=== PATIENT | male | born 1950 | race Caucasian/White ===

== ENCOUNTER 2016-04-16 14:02 | Inpatient (IN) | payer MEDICARE, MEDICAID ==
[~2016-04-16] VITALS: Ht 190.5 cm; Wt 85.8 kg
[~2016-04-16 14:02] MED LIST: ACET325T51 PO; CHOL10008 PO; DOCU250C2 PO; FLUO40CA PO; FRSM80T PO; LACT10SO60 PO; NADO40TA PO; OMEP20CA11 PO; Oxygen NASAL; SPIR100T3 PO; vitamin k PO
[2016-04-16 14:19] VITALS: BP 115/67; PULSE 97; RESP 18; O2SAT 97
--- NOTE | 2016-04-16 15:13 | ED.REPORT ---
HPI-General Illness Date of Service Apr 16, 2016 ED Provider: Alexei Beltran MD 65 year old cirrhotic male was recently discharged from [facility] sent from a long term facility for hallucinations. Reportedly, hallucinations started after giving morphine and have continued since. Associated symptoms include decreased appetite, SOB when lying down, trouble sleeping. Denies vomiting, pain. Pt is known to have hepatocellular carcinoma and hepatic encephalopathy. Pt states "something weird is going on in my head" and reports auditory hallucinations. POLST form indicates DNR and limited interventions. Pt states that he has not been taking morphine since 04/07/16. Nursing Notes Stated Complaint: HALLUCINATIONS Chief Complaint: Neuro Symptoms/ Deficits Nursing Notes Reviewed: Yes Allergies: Coded Allergies: morphine (Verified Allergy, Severe, Hallucinations, 04/12/16) oxycodone (Verified Adverse Reaction, Severe, hallucinate, 03/30/16) acetaminophen (Verified Adverse Reaction, Intermediate, use limited due to hx liver failure, 03/25/16) aspirin (Verified Adverse Reaction, Unknown, tears up his stomach, ) ibuprofen (Verified Adverse Reaction, Unknown, tears up his stomach, 03/25) Scheduled Cholecalciferol (Vitamin D3) (Vitamin D3) 1,000 Unit Tab.chew 1,000 UNIT PO DAILY Fluoxetine (Fluoxetine) 40 Mg Capsule 60 MG PO DAILY Furosemide (Furosemide) 80 Mg Tab 80 MG PO DAILY Lactulose (Lactulose) 20 Gm/30 Ml Solution 20 GM PO TID Nadolol (Nadolol) 40 Mg Tablet 40 MG PO HS Omeprazole (Omeprazole) 20 Mg Capsule.dr 20 MG PO BID Spironolactone (Spironolactone) 100 Mg Tablet 200 MG PO DAILY Scheduled PRN ([Oxygen]) 1-2 L NASAL PRN For Shortness of Breath Acetaminophen (Acetaminophen) 325 Mg Tablet 650 MG PO Q4H PRN PRN For Pain Docusate Sodium (Docusate Sodium) 250 Mg Capsule 250 MG PO BID PRN PRN For Constipation Miscellaneous Medications ([vitamin k]) Unknown Dose PO General Time Seen by MD: 15:10 Transferred From: [facility] Chief Complaint Other (Hallucinations) Hx Obtained From: Patient, Supervisor [employer] Arrived By: Ambulance Sudden in Onset?: Yes Onset Occurred: 1 week ago Symptom Duration: Since onset Severity: Current: No pain currently Severity: Maximum: No pain Recent Healthcare: Recent doctor visit, Recent hospitalization Similar Sx Previous: No Past Medical History Past Medical History Notes: GI: Dr. Nievesjugurasamy PCP: Dr. Pastor Past Medical History pneumothorax from paracentesis multifocal hepatocellular carcinoma Cirrhosis, h/o esophageal varices and portal hypertension abdominal ascities Chronic back pain History of heart murmur History of alcohol abuse Suicidal ideation Reports: GERD, Hypertension Reports: Depression, GI bleed Past Surgical History hernia repair x3 Vasectomy paracentesis 2x Reports: Tonsillectomy Family History Mom in 70's: of coronary artery disease. Dad in 80's: Myocardial infaraction. Smoking History Former Smoker Social History Lives at [facility] Alcohol Use: In recovery Drug Use: Denies drug use Other Social History: Good social support, Local resident Occupation Unemployed Ambulatory Status Independent Review of Systems Full Review of Systems Respiratory: Reports: Shortness of breath GI: Denies: Vomiting Psychiatric: Reports: Hallucinations, auditory, Insomnia Complete sys rev & neg: except as marked. Physical Exam Vital Signs Vital Signs Date Time Temp Pulse Resp B/P Pulse Ox O2 Delivery O2 Flow Rate FiO2 04/16/16 19:45 102 16 118/66 92 Room Air 04/16/16 14:19 36.0 97 18 115/67 97 Room Air Initial VS: Reviewed General/Constitutional: Well-developed, Well-nourished Head / Eyes: Atraumatic, Normocephalic, PERRL ENT: Mucous membranes moist, Conjunctiva normal, No scleral icterus Neck: Supple, Non-tender, Full range of motion Extremities: Vascular intact, Neuro intact, No swelling, No tenderness Neurologic: Alert, Oriented, Nonfocal Respiratory / Chest: Breath sounds NL, No respiratory distress, No rales, No rhonchi, No wheezing Cardiovascular: Heart rate NL, Regular rhythm, No gallop, No rubs Heart Sounds / Murmur: Positive: Systolic murmur present.. (III/, upper sternal border) Abdomen: BS normoactive Bowel Sounds / Distention: Positive: Distention moderate Skin: Warm, Dry, Intact Color / Condition: Positive: Jaundice present Interpretation & Diagnostics Lab Results Interpretation Result Diagram: 04/16/16 1510 04/16/16 1510 Test 04/16/16 15:05 04/16/16 15:10 04/16/16 20:40 Urine Color Dark yellow (YELLOW) Urine Appearance Clear (CLEAR,HAZY) Urine pH 5.0 (5.0-8.0) Urine Specific [place] 1.015 (1.003-1.035) Urine Protein Negativemg/dL (NEG,TRACE) Urine Glucose (UA) 100mg/dL (NEGATIVE) Urine Ketones Negativemg/dL (NEGATIVE) Urine Occult Blood Negative (NEGATIVE) Urine Nitrite Negative (NEGATIVE) Urine Bilirubin Large (NEGATIVE) Urine Ictotest Positive (Negative) Urine Urobilinogen Normalmg/dL (NORMAL) Urine Leukocyte Esterase Negative (NEGATIVE) Urine RBC 0-2/hpf (0-2) Urine WBC 0-5/hpf (0-5) Urine Epithelial Cells None/hpf (NONE-MOD) Urine Crystals None seen (NONE SEEN) Urine Bacteria Few/hpf (NONE-FEW) Urine Hyaline Casts None/lpf (NONE) Urine Granular Casts None seen (NONE SEEN) Urine Waxy Casts None seen (NONE SEEN) Urine Red Blood Cell Casts None seen (NONE SEEN) Urine White Blood Cell Casts None seen (NONE SEEN) Urine Mucus None seen (None Seen) Urine Trichomonas None seen (NONE SEEN) Urine Yeast None (NONE SEEN) Urinalysis Comment Amorphous sediment Urine Culture Reflexed Not indicated White Blood Count 12.2th/mm3 (3.8-10.1) Red Blood Count 2.14mil/mm3 (4.40-5.80) Hemoglobin 8.0g/dL (13.8-17.2) Hematocrit 22.5% (41.0-50.0) Mean Corpuscular Volume 105.1fL (81-100) Mean Corpuscular Hemoglobin 37.4pg (27.0-35.0) Mean Corpuscular Hemoglobin Concent 35.6% (32.0-37.0) Red Cell Distribution Width 17.6% (12.3-15.4) Platelet Count 209bil/L (150-400) Neutrophils (%) (Auto) 77% (40-74) Lymphocytes (%) (Auto) 2% (14-46) Monocytes (%) (Auto) 9% (4-12) Eosinophils (%) (Auto) 2% (0-5) Basophils (%) (Auto) 0% (0-3) Band Neutrophils % 1% (1-5) Metamyelocytes % 4% (0-0) Myelocytes % 5% (0-0) Nucleated Red Blood Cells 1/100 WBC (0-24) Prothrombin Time 16.6sec (8.1-12.5) Prothromb Time International Ratio 1.54ratio Activated Partial Thromboplast Time 44.1sec (22.8-33.0) Sodium Level 123mEq/L (134-144) Potassium Level 4.0mEq/L (3.5-5.2) Chloride Level 88mEq/L (97-108) Carbon Dioxide Level 21mmol/L (18-29) Blood Urea Nitrogen 25mg/dL (8-27) Creatinine 0.30mg/dL (0.76-1.27) Estimat Glomerular Filtration Rate 322mL/min (>59) Glucose Level 125mg/dL (60-99) Calcium Level 8.6mg/dL (8.5-10.1) Total Bilirubin 36.5mg/dL (0.0-1.2) Aspartate Amino Transf (AST/SGOT) 60U/L (0-50) Alanine Aminotransferase (ALT/SGPT) 20U/L (0-44) Alkaline Phosphatase 80U/L (25-160) Ammonia 17ug/dL (18-53) Total Protein 6.2g/dL (6.4-8.4) Albumin 3.2g/dL (3.4-5.0) Hold [place] Top Tube Received (Received) Hold [place] Top Tube Received (Received) Re-Eval/Medical Decision Med Decision/Clinical Course 65 year old cirrhotic with auditory hallucinations, mainly at night. Alert and oriented, does not appear encephalopathic or to be acutely infected. On review of med list I did not see any sedating meds, onset of these hallucinations is realated to morphine given previously at [facility]. Also of note, elevated WBC and low sodium. Bili is climbing. Abd is not tender. His GI specialist advises blood cultrue, admit for observation and possibly diagnostic paracentesis. Blood cx done. Abd NT. Time of Eval: 19:45 Patient Status: Condition improved Re-Evaluation/Progress Note: Discussed consultation with Dr. Wheeler and plan for admission. Pt understands and agrees with plan. Consultation #1: Referral / Consult Name: Hayley Grimm MD Call Returned at: 19:14 Note: GI. Observe the pt overnight. Send a blood culture and hold sedation. Consider diagnostic paracentesis. Consultation #2: Referral / Consult Name: Yasmin Erazo MD Consulted With: Hospitalist Call Returned at: 20:02 Mycologist: Will see patient, Agrees with plan, Accepts admit Counseled Regarding: Diagnosis, Lab results, Need for follow-up, When/why to return to ED Discharge & Departure Primary Impression: Confusion Additional Impression: Hyponatremia Disposition: ADMITTED TO HOSPITAL Discharge Condition All VS Reviewed: Yes Condition: Improved Referrals: Howard Pastor MD (PCP) Hayley Grimm MD Attestation Portions of this note were transcribed by Anabell Dietz. I, Dr. Beltran personally performed the history, physical exam and medical decision-making; I reviewed and confirmed the accuracy of the information in the transcribed note. Signed by : Sofia Flores, 04/16/16 and 2002. copies to: Hayley Grimm MD; Howard Pastor MD, Donald L MD Apr 16, 2016 15:13 ANABELL DIETZ Apr 16, 2016 19:00
[2016-04-16 15:17] LABS: Mean Corpuscular Hemoglobin 37.4 pg (27.0-35.0); Mean Corpuscular Volume 105.1 fL (81-100); Platelet Count 209 bil/L (150-400)
[2016-04-16 15:57] LABS: APPEARANCE,URINE CLEAR (CLEAR,HAZY); COLOR,URINE DARK YELLOW (YELLOW)
[2016-04-16 16:01] LABS: OCCULT BLOOD,URINE NEGATIVE (NEGATIVE); UROBILINOGEN,URINE NORMAL (NORMAL)
[2016-04-16 16:02] LABS: ICTOTEST,URINE POSITIVE (Negative)
[2016-04-16 18:25] LABS: BASOPHILS % (AUTO) 0 % (0-3); EOSINOPHILS % (AUTO) 2 % (0-5); MONOCYTES % (AUTO) 9 % (4-12); NEUTROPHILS % (AUTO) 77 % (40-74)
[2016-04-16 19:45] VITALS: BP 118/66; PULSE 102; RESP 16; O2SAT 92
[2016-04-16] MEDS ORDERED: Ondansetron 2 mg/mL 2 mL Inj IVPUSH PRN (21:00)
[2016-04-16] MEDS ORDERED: Polyethylene Glycol (PEG) 17 Gm Powder PO PRN (21:00)
[2016-04-16] MEDS ORDERED: Alum-Mag Hydrox-Simeth 30 mL Suspension PO PRN (21:00)
[2016-04-16 21:36] LABS: INR 1.54 ratio
--- NOTE | 2016-04-16 21:40 | PCM.HPMED ---
Subjective Date of Service Apr 16, 2016 Primary Provider: Admitting Physician: Primary Care Physician: Howard Pastor MD Attending Physician: Admit Status: From the Emergency Department, 23-Hour Observation, Non-Telemetry Chief Complaint: Increased confusion at [facility] History of Present Illness: This 65-year-old male who has a history of end-stage liver disease along with hepatocellular carcinoma over the past several days apparently has been having some increasing problems with confusion problems with insomnia decreased appetite denies any nausea or vomiting. Denies any abdominal pain. Denies any fevers or chills. His evaluation here in the emergency room actually includes a normal ammonia level of 17 total bili is 36.5 AST is 60 ALT is 20 alkaline phosphatase is 80. His white count is 12.2 with 209,000 platelets his sodium is low but lower than usual at 123. He was recently hospitalized here March 29 with hypotension. Did respond to IV fluids. He also does have a history of recurrent ascites. No recent cough or urinary symptoms. Review of Systems: All other review of systems are reviewed and are negative except for as in history of present illness. Patient does seem to think that he notes since he got some morphine recently about a week ago he notes that he has been having increasing troubles. He only had the one time dose by his report. Allergies Coded Allergies: morphine (Verified Allergy, Severe, Hallucinations, 04/12/16) oxycodone (Verified Adverse Reaction, Severe, hallucinate, 03/30/16) acetaminophen (Verified Adverse Reaction, Intermediate, use limited due to hx liver failure, 03/25/16) aspirin (Verified Adverse Reaction, Unknown, tears up his stomach, ) ibuprofen (Verified Adverse Reaction, Unknown, tears up his stomach, 03/25) Home Medications Scheduled Cholecalciferol (Vitamin D3) (Vitamin D3) 1,000 Unit Tab.chew 1,000 UNIT PO DAILY Fluoxetine (Fluoxetine) 40 Mg Capsule 60 MG PO DAILY Furosemide (Furosemide) 80 Mg Tab 80 MG PO DAILY Lactulose (Lactulose) 20 Gm/30 Ml Solution 20 GM PO TID Nadolol (Nadolol) 40 Mg Tablet 40 MG PO HS Omeprazole (Omeprazole) 20 Mg Capsule.dr 20 MG PO BID Spironolactone (Spironolactone) 100 Mg Tablet 200 MG PO DAILY Scheduled PRN ([Oxygen]) 1-2 L NASAL PRN For Shortness of Breath Acetaminophen (Acetaminophen) 325 Mg Tablet 650 MG PO Q4H PRN PRN For Pain Docusate Sodium (Docusate Sodium) 250 Mg Capsule 250 MG PO BID PRN PRN For Constipation PMH Past Medical History Notes: GI: Dr. Doherty PCP: Dr. Pastor Past Medical History pneumothorax from paracentesis multifocal hepatocellular carcinoma Cirrhosis, h/o esophageal varices and portal hypertension abdominal ascities Chronic back pain History of heart murmur History of alcohol abuse Suicidal ideation Reports: GERD, Hypertension Reports: Depression, GI bleed Past Surgical History hernia repair x3 Vasectomy paracentesis 2x Reports: Tonsillectomy Family History Mom in 70's: of coronary artery disease. Dad in 80's: Myocardial infaraction. Social History Hx Alcohol Use: Yes (stop 9 months ago) Hx Substance Use: No Hx Tobacco Use: No Smoking Status: Former Smoker Living Arrangement: [facility] Facility Exam Vital Signs Vital Sign - Last Date Time Temp Pulse Resp B/P Pulse Ox O2 Delivery O2 Flow Rate FiO2 04/16/16 19:45 102 16 118/66 92 Room Air 04/16/16 14:19 36.0 Exam Constitutional: Very jaundiced male with significant ascites who actually appears in no acute distress Head: Normocephalic atraumatic Eyes: Icteric, PERRLA DC EOMI Mouth: No lesions Neck: No adenopathy Chest: Decreased breath sounds at the bases Cor: Regular rate and rhythm S1-S2 with 3/6 systolic ejection murmur Abdomen: Distended from ascites no palpable tenderness noted Extremities: 1+ lower extremity edema Skin no rashes Psych: Mood and affect are appropriate Neuro: Alert and oriented 3, motor strength is intact bilaterally, no asterixis on exam Lab and Diagnostics Labs Laboratory Tests 72 Hours Test 04/16/16 15:05 04/16/16 15:10 04/16/16 20:40 04/16/16 20:56 Urine Color Dark yellow (YELLOW) Urine Appearance Clear (CLEAR,HAZY) Urine pH 5.0 (5.0-8.0) Urine Specific [place] 1.015 (1.003-1.035) Urine Protein Negativemg/dL (NEG,TRACE) Urine Glucose (UA) 100mg/dL (NEGATIVE) Urine Ketones Negativemg/dL (NEGATIVE) Urine Occult Blood Negative (NEGATIVE) Urine Nitrite Negative (NEGATIVE) Urine Bilirubin Large (NEGATIVE) Urine Ictotest Positive (Negative) Urine Urobilinogen Normalmg/dL (NORMAL) Urine Leukocyte Esterase Negative (NEGATIVE) Urine RBC 0-2/hpf (0-2) Urine WBC 0-5/hpf (0-5) Urine Epithelial Cells None/hpf (NONE-MOD) Urine Crystals None seen (NONE SEEN) Urine Bacteria Few/hpf (NONE-FEW) Urine Hyaline Casts None/lpf (NONE) Urine Granular Casts None seen (NONE SEEN) Urine Waxy Casts None seen (NONE SEEN) Urine Red Blood Cell Casts None seen (NONE SEEN) Urine White Blood Cell Casts None seen (NONE SEEN) Urine Mucus None seen (None Seen) Urine Trichomonas None seen (NONE SEEN) Urine Yeast None (NONE SEEN) Urinalysis Comment Amorphous sediment Urine Culture Reflexed Not indicated White Blood Count 12.2th/mm3 (3.8-10.1) Red Blood Count 2.14mil/mm3 (4.40-5.80) Hemoglobin 8.0g/dL (13.8-17.2) Hematocrit 22.5% (41.0-50.0) Mean Corpuscular Volume 105.1fL (81-100) Mean Corpuscular Hemoglobin 37.4pg (27.0-35.0) Mean Corpuscular Hemoglobin Concent 35.6% (32.0-37.0) Red Cell Distribution Width 17.6% (12.3-15.4) Platelet Count 209bil/L (150-400) Neutrophils (%) (Auto) 77% (40-74) Lymphocytes (%) (Auto) 2% (14-46) Monocytes (%) (Auto) 9% (4-12) Eosinophils (%) (Auto) 2% (0-5) Basophils (%) (Auto) 0% (0-3) Band Neutrophils % 1% (1-5) Metamyelocytes % 4% (0-0) Myelocytes % 5% (0-0) Nucleated Red Blood Cells 1/100 WBC (0-24) Activated Partial Thromboplast Time 44.1sec (22.8-33.0) Sodium Level 123mEq/L (134-144) Potassium Level 4.0mEq/L (3.5-5.2) Chloride Level 88mEq/L (97-108) Carbon Dioxide Level 21mmol/L (18-29) Blood Urea Nitrogen 25mg/dL (8-27) Creatinine 0.30mg/dL (0.76-1.27) Estimat Glomerular Filtration Rate 322mL/min (>59) Glucose Level 125mg/dL (60-99) Calcium Level 8.6mg/dL (8.5-10.1) Total Bilirubin 36.5mg/dL (0.0-1.2) Aspartate Amino Transf (AST/SGOT) 60U/L (0-50) Alanine Aminotransferase (ALT/SGPT) 20U/L (0-44) Alkaline Phosphatase 80U/L (25-160) Ammonia 17ug/dL (18-53) Total Protein 6.2g/dL (6.4-8.4) Albumin 3.2g/dL (3.4-5.0) Hold [place] Top Tube Received (Received) Received (Received) Hold [place] Top Tube Received (Received) Result Diagram: 04/16/16 1510 04/16/16 1510 Assessment & Plan # Reported increased confusion, subacute, present on admission Patient actually is quite alert and oriented and has no deficits and cognitive thinking noted by my interview. We will monitor. Ammonia level was normal. # Recurrent ascites, chronic, present on admission We will go ahead and schedule ultrasound-guided therapeutic/diagnostic paracentesis for tomorrow. # Hyponatremia, subacute on chronic, present on admission We will go ahead and fluid restrict to 1.5 L and recheck in a.m. # Chronic hepatic cirrhosis with hepatocellular carcinoma, chronic, present on admission His GI specialist has been notified by CHAZ Hodge regarding this patient and will see in a.m. with further recommendations. # DVT prophylaxis SCDs # CODE STATUS DNR/DNI Pain Evaluation: Adequate Pain Control GI Prophylaxis: Proton Pump Inhibitor VTE Prophylaxis: SCDs Resuscitation Status: DNR/DNI:Do Not Resuscitate/Intubate Time spent 60 minutes Yasmin Erazo MD Apr 16, 2016 21:40
[2016-04-16 23:57] VITALS: BP 113/70; PULSE 94; RESP 20; O2SAT 94
[2016-04-17] VITALS (15 sets, daily range): BP systolic 93–125; BP diastolic 42–76; PULSE 71–101; RESP 16–24; O2SAT 94–99
[2016-04-17 02:10] LABS: Mean Corpuscular Hemoglobin 37.4 pg (27.0-35.0); Mean Corpuscular Volume 104.7 fL (81-100); Platelet Count 214 bil/L (150-400)
[2016-04-17 02:35] LABS: BASOPHILS % (AUTO) 0 % (0-3); EOSINOPHILS % (AUTO) 3 % (0-5); MONOCYTES % (AUTO) 8 % (4-12); NEUTROPHILS % (AUTO) 70 % (40-74)
--- NOTE | 2016-04-17 05:35 | NUR ---
Restlessness Pt unable to sleep during overnight associate. Pt cooperative with care, up in the chair watching TV. No c/o pain or discomfort. Frequent care checks.
[2016-04-17] MEDS: Pantoprazole 40 mg ER24 Tablet PO SCH (06:30)
--- NOTE | 2016-04-17 07:52 | DRSVH ---
PROCEDURE: X-RAY CHEST ONE VIEW, PORTABLE ([id number]) INDICATIONS: confusion,ascites TECHNIQUE: One view of the chest was acquired. COMPARISON: [facility], CR, XR CHEST 1VW (PORTABLE), 03/29/2016, 17:27. FINDINGS: Surgical changes and devices: None. Lungs and pleura: Right-sided pleural fluid collection has resolved. Moderate-sized left-sided pleura l fluid collection is noted. Patchy airspace opacities noted in the right lung suspicious for residua l pneumonia. Consolidation noted in the left lung base compatible with compressive atelectasis versus pneumonia. Mediastinum: Mediastinal contours appear normal. Heart size is normal. Bones and chest wall: No suspicious bony lesions. Overlying soft tissues appear unremarkable. Dilat ed loop of bowel noted in the right upper quadrant of the abdomen. IMPRESSION: 1. Moderate sized left-sided pleural effusion. 2. Left basilar consolidation compatible with atelectasis versus pneumonia. 3. Patchy airspace opacities in the right lung suspicious for pneumonia. 4. Dilated loop of bowel in the visualized abdomen. Small bowel obstruction cannot be excluded. Recom mend correlation with clinical data. Dictated by: Ambika Walsh MD, PhD on 04/17/2016 at 7:49 Approved by: Ambika Walsh MD, PhD on 04/17/2016 at 7:49
[2016-04-17] MEDS: Lactulose 20 Gm/30 mL 30 mL Syrup PO SCH ×2 (08:28→17:24)
[2016-04-17] MEDS ORDERED: CIPR-198 PO (11:31)
[2016-04-17] MEDS ORDERED: RIFA550T3 PO (11:41)
[2016-04-17] MEDS ORDERED: L. A1CAP11 PO (11:41)
[2016-04-17] MEDS ORDERED: [UNRECOGNIZED DRUG - OTHER] (11:47)
[2016-04-17] MEDS ORDERED: MAGN400O4 PO (11:51)
--- NOTE | 2016-04-17 11:54 | NUR ---
Med Rec: Medication reconciliation completed per medication list from Celina Arriola.
[2016-04-17] MEDS ORDERED: Sodium Chloride LOK Flush 10 mL Syringe IVFLUSH PRN ×2 (12:00)
[2016-04-17] MEDS ORDERED: Alteplase (Cathflo) 1 mg/mL 2 mL Inj IVPUSH ONE ×3 (12:00)
--- NOTE | 2016-04-17 12:59 | NUR ---
Palliative Care Palliative Care received order from Natalie Park DO 04/17/16 to assist with goals of care. Patient is a 65 year old man with history of end stage liver disease and hepatocellular carcinoma. His most recent hospitalization was 03/29 -04/02 for hypotension. He was admitted 04/17/16 from his SNF due to increased confusion. Mary Mi (daughter) [phone], Daysi Lio (sister) [phone] Palliative Care to follow. Dahlia Singh
--- NOTE | 2016-04-17 13:35 | NUR ---
paracentesis patient transferred off floor for paracentesis at 1315hrs
--- NOTE | 2016-04-17 14:03 | PCM.CHPMED ---
Subjective Date of Service: Apr 17, 2016 Provider requesting consult: Yasmin Erazo MD Primary Physician: Admitting Physician: Yasmin Erazo MD Primary Care Physician: Howard Pastor MD Attending Physician: Yasmin Erazo MD Chief Complaint: Chief Complaint: Increasing confusion History of Present Illness: Patient is a 65-year-old male who has a history of end-stage liver disease along with hepatocellular carcinoma, ascites, esophageal varices, portal hypertension, GERD, and alcohol abuse, who presents with increasing confusion over the past several days. He has difficulty describing his confusion and appears to be alert and oriented, but it appears to be more concentration and memory difficulties. He also reports recent visual and auditory hallucinations over the last few days, but states that he has been having auditory hallucinations all his life, and states that he "talks to God" on occasion. He states his recent symptoms started immediately after receiving morphine 10 days ago in [facility]. He also attributes his recent confusion to significant insomnia over the last week due to discomfort in any position while sleeping. He reports lower extremity edema, weakness and poor balance. He denies abdominal pain, fevers, chills, N/V/D, hematochezia, chest pain, SOB, wheezing. In the ED, ammonia was normal at 17, total bili is 36.5, AST is 60, ALT is 20, alkaline phosphatase is 80. His white count is 12.2 with platelets 209. He was afebrile but BP was 94/57. Chest x-ray showed moderate left pleural effusion, left basilar consolidation compatible with atelectasis versus pneumonia, patchy airspace opacities in the right lung suspicious for pneumonia, and dilated loop of bowel in the visualized abdomen, suspicious for a small bowel obstruction. Of note, the [facility] Liver Transplant Selection Committee sent a letter received on 04/05/16 informing the patient and [facility] that the patient is not a candidate for liver transplant because of the following reasons: - Lack of insignt into alcohol used and its effects on liver disease - Inability to maintain sobriety after multiple attempts at chemical dependency treatment. Review of Systems: Comprehensive review of systems conducted and was negative except for the pertinent positives listed above. PMH Bedside Blood Glucose: 105 Allergies: Coded Allergies: morphine (Verified Allergy, Severe, Hallucinations, 04/12/16) oxycodone (Verified Adverse Reaction, Severe, hallucinate, 03/30/16) acetaminophen (Verified Adverse Reaction, Intermediate, use limited due to hx liver failure, 03/25/16) aspirin (Verified Adverse Reaction, Unknown, tears up his stomach, ) ibuprofen (Verified Adverse Reaction, Unknown, tears up his stomach, 03/25) Social History Hx Alcohol Use: Yes (stop 9 months ago)Hx Substance Use: NoHx Tobacco Use: No Smoking Status: Former Smoker [facility] Exam Vital Signs Vital Sign - Last Date Time Temp Pulse Resp B/P Pulse Ox O2 Delivery O2 Flow Rate FiO2 04/17/16 08:12 Supplement Oxygen 04/17/16 05:56 36.6 94 18 94/57 95 2.00 Intake and Output 04/16/16 04/16/16 04/17/16 Cumulative From/Thru 15:00 23:00 07:00 04/16/16 14:19 - 04/17/16 06:54 Intake Total 760 ml 760 ml Output Total 650 ml 650 ml Balance 110 ml 110 ml Intake Oral 760 ml 760 ml Output Urine Total 650 ml 650 ml # Voids 1 1 Additional Information: General: Alert, Oriented X3, Cooperative, No Acute Distress Head: Normocephalic, atraumatic. External ears normal. Eyes: PERRLA, EOMI. Significant scleral icterus Mouth: Mouth Normal, Mucous Membranes Moist/[place] Neck: Neck supple with full range of motion. Chest & Lungs: Clear to auscultation bilaterally with no crackles, wheezes, or rhonchi. Cardiovascular: Regular Rate/Rhythm, Normal S1, Normal S2, No Murmurs/Rubs/ Gallops Abdomen: Non-tender, Abdomen severely distended with ascites, No masses, Hypoactive bowel tones, Soft Extremities: Bilateral lower extremity edema Neurological: Normal Speech, Tremor present in hands, Cranial Nerves 2-12 Intact Skin: Jaundice present. Telangiectasia on face. Distended Lab and Diagnostics Result Diagram: 04/17/1614604/17/16146 Assessment & Plan Assessment Patient is a 65-year-old male who has a history of end-stage liver disease along with hepatocellular carcinoma, ascites, esophageal varices, portal hypertension, GERD, and alcohol abuse, who presents with increasing confusion over the past several days 1. Leukocytosis, acute. - Pt presents with WBC of 12.2 with 77% neutrophils. His WBC is significantly elevated given his baseline WBC of 3-4. Pancytopenia is expected in pts with ESLD and even minor elevations in WBC should be investigated. Given his CXR findings and ascites, consider causes of infection such as pneumonia, small bowel obstruction, and spontaneous bacterial peritonitis. - Recommend paracentesis with cultures and cytology - Consider further abdominal imaging. 2. Ascites - Pt presents with large amount of ascites. Given leukocytosis, recommend paracentesis with fluid analysis including cultures and cytology. 3. Acute confusion, stable. - Ammonia level was normal, but this is not a reliable test to follow for hepatic encephalopathy. Likely not related to hepatic encephalopathy, but may be due to loss of sleep, baseline psychiatric issues and possible infection. Recommend investigating/treating underlying cause of infection. 4. End-stage liver disease, chronic. - MELD Score 31, which confers a 19.6% 3 month mortality. Problems: Pain Evaluation: Adequate Pain Control GI Prophylaxis: Proton Pump Inhibitor VTE Prophylaxis: SCDs Resuscitation Status: DNR/DNI:Do Not Resuscitate/Intubate Attending Statement Patient seen and examined Agree with the resident physician noted above Plan as outlined in his note Jonel Matt Apr 17, 2016 13:37 Hayley Grimm MD May 06, 2016 14:45
--- NOTE | 2016-04-17 14:38 | PCM.PNMED ---
Subjective Date of Service Apr 17, 2016 Subjective Ramana reports that he was sent from [facility] to the hospital because of insomnia, he has not slept well for 2 weeks, and staff at [facility] were worried about his hallucinations. Ramana states that he has had auditory hallucinations "for most of my life" in which he hears what he thinks is the voice of god talking to him. He has started to have some visual hallucinations as well which he states are rather pleasant. Ramana states that he understands that he is dying and would like have a palliative care discussion. Exam Vital Signs Vital Sign - Last Date Time Temp Pulse Resp B/P Pulse Ox O2 Delivery O2 Flow Rate FiO2 04/17/16 13:34 92 20 123/76 97 Nasal Cannula 2.00 04/17/16 13:16 36.3 Intake and Output 04/16/16 04/16/16 04/17/16 Cumulative From/Thru 15:00 23:00 07:00 04/16/16 14:19 - 04/17/16 06:54 Intake Total 760 ml 760 ml Output Total 650 ml 650 ml Balance 110 ml 110 ml Intake Oral 760 ml 760 ml Output Urine Total 650 ml 650 ml # Voids 1 1 Exam General: Chronically ill appearing male laying supine in bed, resting with the head of the bed elevated. HEENT: Sclera icteric. Tongue with jaundice. Mucus membranes are moist Cardiac: RRR, no rub or gallop Respiratory: Moderate inspiratory effort, no wheezes, rales, or rhonchi Abdomen: Umbilical hernia present. + moderate ascites with fluid wave. Hepatomegaly present to 4cm inferior to the costal margin with scratch test. Subtle caput medusae present. Skin: Jaundice throughout including the palms of the hands. Skin is dry with normal turgor. There are many small ecchymoses of varying ages present on the bilateral upper extremities. Telangiectasias present on the face. Neuro: Awake, alert, and oriented. Able to sit up in bed unassisted. Moves all 4 extremities with ease. Normal speech. Psych: Normal affect. No current hallucinations. No paranoia or obsessive thoughts. IVs and Medications Medications Reviewed: Medications were reviewed in detail Lab and Diagnostics Result Diagram: 04/17/16 0147 04/17/16146 X-Rays, CTs and MRIs CXR 04/16/16: IMPRESSION: 1. Moderate sized left-sided pleural effusion. 2. Left basilar consolidation compatible with atelectasis versus pneumonia. 3. Patchy airspace opacities in the right lung suspicious for pneumonia. 4. Dilated loop of bowel in the visualized abdomen. Small bowel obstruction cannot be excluded. Recommend correlation with clinical data. Dictated by: Ambika Walsh MD, PhD on 04/17/2016 at 7:49 Assessment & Plan Ramana is an unfortunate 65yo male with longstanding alcohol use in remission for 9months who has end stage liver disease along with multifocal hepatocellular carcinoma for which he had ablation at [facility]. He was admitted after staff at [facility] found that he has been hallucinating. He has been alert and oriented since admission. 1. End stage liver disease, chronic and worsening - Secondary to alcoholic cirrhosis - MELD score of 31 indicating a 19.6% chance of within the next 3 months - Not a candidate for transplant after discussion at [facility] - Gastroenterology has been consulted during this hospitalization - Requesting a palliative consultation as the patient would like to have a goals of care discussion and verbally expressed an interest in transitioning to hospice care 2. Recurrent ascites, chronic, present on admission - Has been getting therapeutic paracentesis every 2 weeks - Ultrasound-guided therapeutic paracentesis today 3. Hyponatremia, subacute on chronic, present on admission -Secondary to #1 above -Continue fluid restriction to 1.5 L per day to avoid worsening 4. Hallucinations, probably chronic - Does not have an altered mental status from his baseline per the patient's daughter, Mary, who was bedside this morning. - Consider that the patient may have an underlying psychiatric illness that he was self medicating with ETOH - He verbally expressed that he is not bothered by the hallucinations which have been life long - Will defer treatment at this time 5. Multi focal hepatocellular carcinoma - s/p ablative therapy GI Prophylaxis: Proton Pump Inhibitor VTE Prophylaxis: SCDs Resuscitation Status: DNR/DNI:Do Not Resuscitate/Intubate (Discussed at bedside with the patient) Attending Statement The patient was seen and examined together with Dr. Park on 04/17/2016 and I agree with the history, exam and plan as outlined in the note above. Maria E Park DO Apr 17, 2016 14:38 Brent Dumont MD Apr 18, 2016 13:48
[2016-04-17] MEDS ORDERED: Albumin 25% 50 ML IV ONE (15:35)
--- NOTE | 2016-04-17 16:09 | NUR ---
Social Work: Attempted initial Assessment Data: INSPECTOR EYEGLASS FRAMES attempted initial assessment, pt was out of room for medical testing. INSPECTOR EYEGLASS FRAMES will attempt at a later time. JUANJO Villalpando
[2016-04-17] MEDS ORDERED: Albumin 25% 25 GM in IV Premix 1 EACH IV ONE (16:45)
--- NOTE | 2016-04-17 17:10 | NUR ---
Paracentesis: Pt arrived to [facility] for paracentesis at 1330, VSS on 2L NC, no c/o pain. Radiologist started procedure at 1505 with US at bedside, 6.9 L fluid drained. Picc line not flushing well and would not infuse albumin, 22g peripheral IV started in L AC and albumin infused per order. Report called to ERVIN Tompkins on MOC, pt taken in w/c off [facility] with chart and belongings at 1705.
--- NOTE | 2016-04-17 18:25 | NUR ---
AMS improved patient mental status improving today. patient able to answer questions appropriately; alert to person, place and time. he's able to make needs known. continue to monitor for any changes.
[2016-04-17] MEDS: Heparin 5,000 Unit/mL Inj SUBQ SCH (20:20)
[2016-04-17] MEDS: Phytonadione (Adult) 10 mg/1 mL Inj PO SCH (22:00)
[2016-04-18] MEDS: Lactulose 20 Gm/30 mL 30 mL Syrup PO SCH ×4 (01:02→21:25)
[2016-04-18 04:05] VITALS: BP 107/58; PULSE 69; RESP 20; O2SAT 97
--- NOTE | 2016-04-18 05:08 | NUR ---
Restlessness/Mentation Pt unable to fall sleep tonight. Denies pain. on 2L O2 with SPO2 97%. Pleasant and cooperative with care. liquid stool x3. A&O x3, but forgetful. Bed is locked and in low position. call light within reach. will continue to monitor.
[2016-04-18 06:12] LABS: Mean Corpuscular Hemoglobin 36.6 pg (27.0-35.0); Platelet Count 208 bil/L (150-400)
[2016-04-18] MEDS: Pantoprazole 40 mg ER24 Tablet PO SCH (06:42)
[2016-04-18 07:01] LABS: BASOPHILS % (AUTO) 0 % (0-3); EOSINOPHILS % (AUTO) 3 % (0-5); MONOCYTES % (AUTO) 14 % (4-12); NEUTROPHILS % (AUTO) 71 % (40-74)
--- NOTE | 2016-04-18 07:40 | NUR ---
Order Clarification Contacted Dr. Goldsmith with the following cook page: Patient has a total of 100mg Pepcid scheduled this morning, 20 mg BID and 80 mg Daily, wanted to clarify order. Please advise. Thank you. Any MELENDEZ
[2016-04-18 08:46] VITALS: BP 116/52; PULSE 68; RESP 20; O2SAT 98
--- NOTE | 2016-04-18 09:10 | DRSVH ---
PROCEDURE: US GUIDED PARACENTESIS, PRIMARY ([id number]) INDICATIONS: ascites,cirrhosis,therapeutic and diagnostic TECHNIQUE: The indications, alternatives, benefits, risks, and complications of the procedure were explained to the patient. Written informed consent was obtained and placed in the chart. The abdomen and pelvis were examined sonographically, and an appropriate site was chosen for paracentesis. The skin was pre pared and draped in the usual sterile fashion, and 1% lidocaine was infiltrated from the skin down th rough the peritoneal surface. A 19-gauge catheter-covered needle was then introduced into the perito barbara space, the catheter was advanced and the needle was withdrawn, and thereafter peritoneal fluid w as withdrawn. The catheter was then removed and a dressing was applied. The fluid was discarded if the clinician did not order diagnostic testing of the fluid. COMPARISON: None. FINDINGS: Access site: Midline lower abdomen. Needle: One-Step centesis catheter with introducer needle. Fluid volume and description: 8000 cc of clear yellow ascites. Fluid sent for diagnostic testing: Not requested Medications: 1% lidocaine for local anaesthesia. Complications: None. IMPRESSION: Successful ultrasound-guided therapeutic paracentesis. No immediate complications. Dictated by: Ambika Walsh MD, PhD on 04/18/2016 at 9:07 Approved by: Ambika Walsh MD, PhD on 04/18/2016 at 9:07
--- NOTE | 2016-04-18 09:20 | NUR ---
Pharmacy Communication Called pharmacy due to missing Vitamin K, was told the med is not due until tonight. I stated the computer does reflect the med is due at 0830, was asked to send a nursing communication to the pharmacy. Nursing communication form completed and sent to the pharmacy.
--- NOTE | 2016-04-18 09:54 | PCM.PNMED ---
Subjective Date of Service Apr 18, 2016 Subjective Patient had difficulty sleeping overnight, but otherwise uneventful. He continues to be fully awake and oriented but occasionally forgetful. This morning, he denies confusion, nausea, vomiting, abdominal pain, fever, or chills. He reports green stool, chronically loose from lactulose. He reports his coughing and shortness of breath are significantly improved after the paracentesis yesterday. He denies any further visual hallucinations, but continues to have occasional auditory hallucinations, which he reports he has always had. Exam Vital Signs Vital Sign - Last Date Time Temp Pulse Resp B/P Pulse Ox O2 Delivery O2 Flow Rate FiO2 04/18/16 08:46 36.7 68 20 116/52 98 Nasal Cannula 2.00 Intake and Output 04/17/16 04/17/16 04/18/16 Cumulative From/Thru 15:00 23:00 07:00 04/16/16 14:19 - 04/18/16 06:21 Intake Total 350 ml 800 ml 1910 ml Output Total 6900 ml 750 ml 1075 ml 9375 ml Balance -6900 ml -400 ml -275 ml -7465 ml Intake Oral 350 ml 800 ml 1910 ml Output Urine Total 750 ml 475 ml 1875 ml Stool Total 600 ml 600 ml Other 6900 ml 6900 ml # Voids 1 # Bowel Movements 0 4 4 Exam General: Alert, Oriented X3, Cooperative, No Acute Distress Head: Normocephalic, atraumatic. External ears normal. Eyes: PERRLA, EOMI. Significant scleral icterus Mouth: Mouth Normal, Mucous Membranes Moist/[place] Neck: Neck supple with full range of motion. Chest & Lungs: Clear to auscultation bilaterally with no crackles, wheezes, or rhonchi. Cardiovascular: Regular Rate/Rhythm, Normal S1, Normal S2, Systolic murmur at right sternal border Abdomen: Non-tender, Abdomen moderately distended with ascites, No masses, Hypoactive bowel tones, Soft Extremities: Bilateral lower extremity edema Neurological: Normal Speech, Tremor present in hands, Cranial Nerves 2-12 Intact Skin: Jaundice present. Telangiectasia on face. Lab and Diagnostics Result Diagram: 04/18/16 0525 04/18/16 0525 X-Rays, CTs and MRIs CXR 04/16/16: IMPRESSION: 1. Moderate sized left-sided pleural effusion. 2. Left basilar consolidation compatible with atelectasis versus pneumonia. 3. Patchy airspace opacities in the right lung suspicious for pneumonia. 4. Dilated loop of bowel in the visualized abdomen. Small bowel obstruction cannot be excluded. Recommend correlation with clinical data. Dictated by: Ambika Walsh MD, PhD on 04/17/2016 at 7:49 Assessment & Plan Patient is a 65-year-old male who has a history of end-stage liver disease along with hepatocellular carcinoma, ascites, esophageal varices, portal hypertension, GERD, and alcohol abuse, who presents with increasing confusion over the past several days 1. Ascites, improved. - Pt presented with large amount of ascites. Paracentesis was done, draining 7L of ascites. Pt report improved breathing after procedure. 2. Acute confusion, stable. - Ammonia level was normal, but this is not a reliable test to follow for hepatic encephalopathy. Likely not related to hepatic encephalopathy, but may be due to loss of sleep, baseline psychiatric issues and possible infection. 3. Leukocytosis, acute. Resolved. - Pt presents with WBC of 12.2 with 77% neutrophils. His WBC is significantly elevated given his baseline WBC of 3-4. Pancytopenia is expected in pts with ESLD and even minor elevations in WBC should be investigated. Given his CXR findings and ascites, consider causes of infection such as pneumonia, small bowel obstruction, and spontaneous bacterial peritonitis. - Recommend paracentesis with cultures and cytology - Consider further abdominal imaging. 4. End-stage liver disease, chronic. - MELD Score 31, which confers a 19.6% 3 month mortality. GI Prophylaxis: Proton Pump Inhibitor VTE Prophylaxis: SCDs Resuscitation Status: DNR/DNI:Do Not Resuscitate/Intubate (Discussed at bedside with the patient) Attending Statement Patient seen and examined with the resident physician, Agree with Plan as outlined in his notes above Jonel Matt Apr 18, 2016 09:18 Hayley Grimm MD May 06, 2016 14:47
[2016-04-18] MEDS: Heparin 5,000 Unit/mL Inj SUBQ SCH ×2 (09:55→21:27)
--- NOTE | 2016-04-18 10:47 | NUR ---
Morning Rounds Staffed patient's case with Dr. Goldsmith, case management and social work. Social work to see patient and find out if patient can return to [facility], if so, patient may possibly discharge tomorrow.
--- NOTE | 2016-04-18 11:12 | NUR ---
Vitamin K Called pharmacy to follow up on nursing communication sent regarding Vitamin K, as it was missing during med pass and was initially told by pharmacy informatics manager that it was not scheduled for this morning. Called to find out if this medication is going be to sent up or if it will be retimed. Was told they will mix the medication now and will send it to CCU.
[2016-04-18] MEDS: Phytonadione (Adult) 10 mg/1 mL Inj PO SCH (11:49)
--- NOTE | 2016-04-18 12:14 | NUR ---
Social Work: Initial Assessment: EMR Reviewed. See Initial Assessment. SW met with patient at bedside to complete initial assessment, SW role explained and discussed dc plan. Patient was alert and oriented x3. patient is a 65 y/o male that admitted for AMS and Hyponatremia. Patient's re-admit score is high at 7. patient's NOK/DPOA is his daughter Mi. SW requested a copy of patient's DPOA. Patient's PCP is Dr. Howard Pastor. Patient does not have any VA or LTC benefits. Jorge L is a resident of [facility] and plans to return there when discharged. Patient reported that he has a payee named Shruthi Harrison and a counselor from [facility] name Lemuel Johnson. Patient reports that he spoke with palliative care and notified them that he wants to discharge with hospice. Patient chose [facility]. SW called [facility] referral line, but there was no answer. SW left a message notifying the hospice of a referral and SW left her name and number requesting a call back. SW will continue to try and contact [facility]. It is likely that the patient will discharge back to [facility] with hospice. SW will continue to follow and assist patient with discharge planning. Plan: It is likely that the patient will discharge back to [facility] with hospice. SW will continue to try and contact [facility] and refer the patient. SW will continue to follow and assist patient. Lillian Pelaez LMSW, THERESA Addendum: 04/18/16 at 1226 by LILLIAN PELAEZ Amended: Links added.
--- NOTE | 2016-04-18 12:21 | PCM.CONPAL ---
Date of Service Apr 18, 2016 Date of Hospital Admission: Apr 17, 2016 at 00:55 Date of Palliative Consult: Apr 18, 2016 Requesting Provider: Yasmin Erazo MD Reason Palliative Care Consult: Goals of Care Discussion Hospital Unit @time of consult: Other (MOC) Palliative Care Recommendation Summary of palliative recommendations: -Symptom management (Pain/other) ESLD and Hepatocellular carcinoma with profound jaundice but normal ammonia level. Patient verbalizes that he is not interested in pursuing transplantation and that he acknowledges not being able to control his ETOH intake. He has been abstinent since at [facility] now 8-9 months. He wishes to return to [facility] with their support. Reviewed hospice option but he does not find this appealing and he is suspicious of their potential spiritual component-he is Congregation and wishes to follow this on a Congregation path of dying. He also wants the option to continue on with regular paracentesis which are now occurring about weekly. Pain controlled with paracentesis as is his anorexia improved and dyspnea improved Insomnia-chronic and significant. denies treatment with sedative-states trial of MS with severe agitation and hallucinations resulting. Hallucinations- longstanding. He denies ever being treated with antipsychotic- reviewed with Dr. Pastor who agrees to trial-- low dose. This may also boost his antidepressant. quetiapine 12.5 mg hs -increase as needed and monitor for Chronic depression-verbalizes a lot of regrets from his inability to control his drinking. He talks of his past goals of killing himself with ETOH. Is not suicidal now. -DPOA/Advanced Directives/POLST-DNR/DNI and no feeding tube -Family/emotional support-daughter Mary Rahman who he also defines as his DPOAHC -Spiritual support-following a 'Congregation path' Problems: End of Life Preferences DNR/DNI Goals of Care As defined. He is not interested in pursuing transplant option and he was declined at [facility]. He wants to stay at [facility] with the option to have paracentesis every week or so for comfort Disposition Return to [facility] It would be helpful to have routine orders for US guided paracentesis PRN for comfort Resuscitation Status Resuscitation Status: DNR/DNI:Do Not Resuscitate/Intubate (Discussed at bedside with the patient) POLST Updates/Changes Artificially Admin Nutrition: No Artifical Nutrition by Tube Pt History History of Present Illness Patient is a 65-year-old male who has a history of end-stage liver disease along with hepatocellular carcinoma, ascites, esophageal varices, portal hypertension, GERD, and alcohol abuse, who presents with increasing confusion over the past several days. He has difficulty describing his confusion and appears to be alert and oriented, but it appears to be more concentration and memory difficulties. He also reports recent visual and auditory hallucinations over the last few days, but states that he has been having auditory hallucinations all his life, and states that he "talks to God" on occasion. He states his recent symptoms started immediately after receiving morphine 10 days ago in [facility]. He also attributes his recent confusion to significant insomnia over the last week due to discomfort in any position while sleeping. He reports lower extremity edema, weakness and poor balance. He denies abdominal pain, fevers, chills, N/V/D, hematochezia, chest pain, SOB, wheezing. In the ED, ammonia was normal at 17, total bili is 36.5, AST is 60, ALT is 20, alkaline phosphatase is 80. His white count is 12.2 with platelets 209. He was afebrile but BP was 94/57. Chest x-ray showed moderate left pleural effusion, left basilar consolidation compatible with atelectasis versus pneumonia, patchy airspace opacities in the right lung suspicious for pneumonia, and dilated loop of bowel in the visualized abdomen, suspicious for a small bowel obstruction. Of note, the [facility] Liver Transplant Selection Committee sent a letter received on 04/05/16 informing the patient and [facility] that the patient is not a candidate for liver transplant because of the following reasons: - Lack of insight into alcohol used and its effects on liver disease - Inability to maintain sobriety after multiple attempts at chemical dependency treatment. PALLIATIVE CARE NOTE: Reason for consult-goals of care Referral from Dr. Park Meeting with patient and his daughter Mary Rahman [address] Howard Pastor with Hx of hepatocellular carcinoma due to longstanding cirrhosis from alcoholic liver disease. He has portal HTN, esophageal varicies and recurrent ascites requiring paracentesis for management. He was turned down for transplant at [facility] due to his inability to abstain from alcohol. He has been off alcohol since living at [facility] due to his profound weakness and debility. He has chronic depression with longstanding auditory hallucinations. He denies treatment with mood stabilizers or antipsychotic meds. He has never sought this out. He is from his who has been sober for >20 yrs. He has 1 joey Rahman who he identifies as his DPOA Past Medical History Significant PMH Noted: Alcoholic cirrhosis with portal HTN and varices and ascites Depression with AH Hx GI bleed HTN chronic ETOH abuse Hx suicidal ideations Chronic LBP exsmoker surg- hernia repair, vasectomy, T&A hyponatremia Hx plerx drain for ascites complicate by pneumothorax and chronic drainage. Failed attempted ablation of HCC end of mar at [facility] Social History Occupation: [employer] worker and [employer] Social Support: daughter Living Situation: [facility]-works very well for him.He likes the structure and the people. Feels physically and emotionally supported there Spiritual Support Spiritual Support Congregation Responsive Patient Symptoms Pain (current): Moderate Tiredness/Fatigue: Moderate Nausea: Moderate Depression: Moderate Anorexia: Moderate Shortness of Breath: Moderate Delirium acknowledges can get confused but hx chronic auditory hallucinations Other diarrhea and occ incont regular dosing of lactulose Palliative Performance Scale PPS Ambulation: Mainly Sit/Lie PPS Activity: Unable to do most activity PPS Self-Care: Considerable assistance required, 1 person assist PPS Intake: Normal or reduced PPS Conscious Level: Full or confusion Medications Current Medications: Current Medications Famotidine 20 mg BID PO Last administered on 04/17/16 20:21; Admin Dose 20 MG; Start 04/17/16 at 08:30; Stop 04/18/16 at 07:44; Status DC Al Hydrox/Mg Hydrox/Simethicone 30 ml Q6H PRN PO; Start 04/16/16 at 21:00 Ondansetron HCl 4 to 8 mg Q4H PRN IVPUSH; Start 04/16/16 at 21:00 Senna 17.2 mg BID PRN PO; Start 04/16/16 at 21:00 Polyethylene Glycol 17 gm DAILY PRN PO; Start 04/16/16 at 21:00 Acetaminophen 650 mg Q4H PRN PO; Start 04/16/16 at 21:20 Docusate Sodium 250 mg BID PRN PO; Start 04/16/16 at 21:20 Furosemide 80 mg DAILY PO Last administered on 04/18/16 09:54; Admin Dose 80 MG ; Start 04/17/16 at 08:30 Lactulose 20 gm TID PO Last administered on 04/18/16 09:54; Admin Dose 20 GM; Start 04/17/16 at 08:30 Nadolol 40 mg HS PO Last administered on 04/17/16 20:20; Admin Dose 40 MG; Start 04/17/16 at 21:00 Cholecalciferol 1,000 unit DAILY PO Last administered on 04/18/16 09:55; Admin Dose 1,000 UNIT; Start 04/17/16 at 08:30 Fluoxetine HCl 60 mg DAILY PO Last administered on 04/18/16 09:54; Admin Dose 60 MG; Start 04/17/16 at 08:30 Pantoprazole 40 mg 0630 PO Last administered on 04/18/16 06:42; Admin Dose 40 MG; Start 04/17/16 at 06:30; Stop 04/18/16 at 07:44; Status DC Spironolactone 200 mg DAILY PO Last administered on 04/18/16 09:55; Admin Dose 200 MG; Start 04/17/16 at 08:30 Heparin Sodium (Porcine) 5,000 unit Q12 SUBQ Last administered on 04/18/16 09: 55; Admin Dose 5,000 UNIT; Start 04/17/16 at 20:30 Phytonadione 10 mg DAILY PO Last administered on 04/18/16 11:49; Admin Dose 10 MG; Start 04/17/16 at 20:30; Stop 04/20/16 at 20:31 Scheduled ([Med Plus ]) 1 DOSE BID Ciprofloxacin (Ciprofloxacin) 500 Mg Tablet 500 MG PO DAILY Fluoxetine (Fluoxetine) 40 Mg Capsule 60 MG PO DAILY Furosemide (Furosemide) 80 Mg Tab 80 MG PO DAILY L. Acidophilus/Pectin, [place] (Acidophilus Capsule) 7.5 Mg (30 Million Cell)- 100 Mg Capsule 1 EACH PO BID Lactulose (Lactulose) 20 Gm/30 Ml Solution 20 GM PO BID Omeprazole (Omeprazole) 20 Mg Capsule.dr 20 MG PO BID Rifaximin (Xifaxan) 550 Mg Tablet 550 MG PO BID Spironolactone (Spironolactone) 100 Mg Tablet 100 MG PO DAILY Scheduled PRN ([Oxygen]) 1-2 L NASAL PRN For Shortness of Breath Acetaminophen (Acetaminophen) 325 Mg Tablet 650 MG PO Q4H PRN PRN For Pain Magnesium Hydroxide (Milk of Magnesia) 400 Mg/5 Ml Oral.susp 400 MG PO BID PRN PRN For Constipation Miscellaneous Medications ([vitamin k]) Unknown Dose PO Give 10 mg per day by mouth for INR Objective Findings Exam Vital Sign - Last Date Time Temp Pulse Resp B/P Pulse Ox O2 Delivery O2 Flow Rate FiO2 04/18/16 09:45 Supplement Oxygen 04/18/16 08:46 36.7 68 20 116/52 98 2.00 Intake and Output 04/17/16 04/17/16 04/18/16 Cumulative From/Thru 15:00 23:00 07:00 04/16/16 14:19 - 04/18/16 06:21 Intake Total 350 ml 800 ml 1910 ml Output Total 6900 ml 750 ml 1075 ml 9375 ml Balance -6900 ml -400 ml -275 ml -7465 ml Intake Oral 350 ml 800 ml 1910 ml Output Urine Total 750 ml 475 ml 1875 ml Stool Total 600 ml 600 ml Other 6900 ml 6900 ml # Voids 1 # Bowel Movements 0 4 4 General: Alert/Oriented x3 HEENT: PERRLA, EOMI, Scleral Icterus Heart: Regular Rate/Rhythm Abdomen: Distended Neuro: Cranial Nerve 3-12 Intact, Other Skin: Other (deeply jaundiced) Lab/Diagnostics Lab and Imaging results reviewed in detail in EMR. 8L removed with paracentesis bili is 36 ammonia 17 Patient/Family Conference Members Present Family Members Present Mary Rahman daughter patient Medical Team Members Present? DNorthMD Discussion/Goals of Care Discussion FAMILY UNDERSTANDING OF DISEASE: Ramana is able to reiterate the severity of his disease and that he is dying from liver failure. He has appreciated his time at [facility] and wishes to return. He understands why he was denied transplant and he states he just want to move this all along. He is not interested in another attempt at drinking himself to and is willing to let the disease take its course. Dr. Wheeler had mentioned he could pursue possible transplant at a different facility but he states he is not interested in this. DISEASE PROGRESSION/EVIDENCE OF DECLINE: SYMPTOM BURDEN: He would be interested in trial of meds for sleep and AH. Reviewed caution with his severe liver disease and risk of delirium/sedation etc.Would avaoid benzodiazepines GOALS: He wishes to return to [facility] and be able to come back for therapeutic thoracentesis prn--this is important to him for comfort. Time spent Total time [ 60] minutes; >50% face to face with patient and/or family, providing counselling regarding plans and recommendations, and in care coordination with his/her medical teams. including F2F and family conference, coordination with team and Dr. Pastor I also spent an additional [ ] minutes counseling for advanced care planning with the patient/the patients family/the surrogate decision maker. copies to: Howard Pastor MD, Deborah A MD Apr 18, 2016 12:21
[2016-04-18 12:28] VITALS: BP 99/64; PULSE 67; RESP 20; O2SAT 95
--- NOTE | 2016-04-18 14:27 | NUR ---
Social Work: Continued Discharge Planning Data & Assessment: Senior Ruby Developer spoke with Mitzy at [facility] and scheduled a hospice info visit for 04/19/15 at 1pm. Senior Ruby Developer notified patient's daughter, Mary Stark, and she reported that she will be present for the hospice info visit. SW will continue to follow. Plan: Patient and patient's daughter will meet with [facility] on 04/19/15 for a hospice info. visit. Patient likely to discharge back to [facility] with hospice. SW will continue to follow. Shantal Pelaez LMSW, ACM
[2016-04-18 16:25] VITALS: BP 96/58; PULSE 68; RESP 20; O2SAT 97
--- NOTE | 2016-04-18 17:16 | NUR ---
Anxiety Contacted Dr. Goldsmith with the following cook page: Patient is currently reporting anxiety and racing thoughts, does not have any PRN meds for anxiety, only Seroquel HS. Please advise. Thank you. Any MELENDEZ
--- NOTE | 2016-04-18 17:34 | NUR ---
Order Clarification Contacted Dr. Goldsmith with the following cook page: Please clarify route for PRN Lorazepam, currently ordered as IM, but IV may be tolerated better by patient. Thank you. Any MELENDEZ
[2016-04-18 21:22] VITALS: BP 99/57; PULSE 127; RESP 22; O2SAT 96
[2016-04-19] VITALS (8 sets, daily range): BP systolic 87–100; BP diastolic 49–64; PULSE 61–69; RESP 17–18; O2SAT 91–99
[2016-04-19] MEDS: Lactulose 20 Gm/30 mL 30 mL Syrup PO SCH ×4 (06:01→21:13)
--- NOTE | 2016-04-19 06:21 | NUR ---
Activity Pt mentation cleared up throughout the night. During handoff with previous RN it was hard to get him to state his name. He has progressed to AOX3 and making jokes. He does seem to have some confusion and hallucinations (talking to himself). He did have two incontinent BMs, one at the beginning of shift and one at 0600.
[2016-04-19] MEDS: Heparin 5,000 Unit/mL Inj SUBQ SCH ×2 (09:12→20:01)
--- NOTE | 2016-04-19 09:39 | NUR ---
[facility] Signed 275AM
--- NOTE | 2016-04-19 12:16 | NUR ---
Hallucinations Pt reports hallucinations, seeing people and having conversations with them. He states it has been going on for "a while" and that it has gotten worse since Ativan was given last night. MD aware. No new orders received. Addendum: 04/19/16 at 1532 by JACINTA WHITMORE RN Palliative care , Dr. Singletary, notified regarding hallucinations. Order received for BID Risfaizadal.
[2016-04-19] MEDS: Phytonadione (Adult) 10 mg/1 mL Inj PO SCH (12:39)
--- NOTE | 2016-04-19 14:09 | PCM.PNMED ---
Subjective Date of Service Apr 19, 2016 Subjective Patient had increasing confusion overnight with hallucinations. This morning he continues to be slightly confused, but alert and oriented x3. He reports some increased shortness of breath, coughing and wheezing. He denies fevers, chills, nausea, vomiting, diarrhea, or abdominal pain. Exam Vital Signs Vital Sign - Last Date Time Temp Pulse Resp B/P Pulse Ox O2 Delivery O2 Flow Rate FiO2 04/19/16 10:29 36.5 61 18 98/63 97 Room Air 04/19/16 05:38 2.00 Intake and Output 04/18/16 04/18/16 04/19/16 Cumulative From/Thru 15:00 23:00 07:00 04/16/16 14:19 - 04/19/16 06:16 Intake Total 750 ml 50 ml 2710 ml Output Total 750 ml 2 ml 81843 ml Balance 0 ml 48 ml -7417 ml Intake Oral 750 ml 50 ml 2710 ml Output Urine Total 600 ml 2475 ml Stool Total 150 ml 750 ml Urine/Stool Mix 2 ml 2 ml Other 6900 ml # Voids 1 # Bowel Movements 3 7 Exam General: Alert, Oriented X3, Cooperative, No Acute Distress. Mumbles and appears slightly confused. Head: Normocephalic, atraumatic. External ears normal. Eyes: PERRLA, EOMI. Significant scleral icterus Mouth: Mouth Normal, Mucous Membranes Moist/[place] Neck: Neck supple with full range of motion. Chest & Lungs: Clear to auscultation bilaterally with no crackles, wheezes, or rhonchi. Cardiovascular: Regular Rate/Rhythm, Normal S1, Normal S2, Systolic murmur at right sternal border Abdomen: Non-tender, Abdomen moderately distended with ascites, No masses, Hypoactive bowel tones, Soft Extremities: Bilateral lower extremity edema Neurological: Normal Speech, Tremor present in hands, possible asterixis. Skin: Jaundice present. Telangiectasia on face. Lab and Diagnostics Result Diagram: 04/18/1652404/18/16524 X-Rays, CTs and MRIs CXR 04/16/16: IMPRESSION: 1. Moderate sized left-sided pleural effusion. 2. Left basilar consolidation compatible with atelectasis versus pneumonia. 3. Patchy airspace opacities in the right lung suspicious for pneumonia. 4. Dilated loop of bowel in the visualized abdomen. Small bowel obstruction cannot be excluded. Recommend correlation with clinical data. Dictated by: Ambika Walsh MD, PhD on 04/17/2016 at 7:49 Assessment & Plan Patient is a 65-year-old male who has a history of end-stage liver disease along with hepatocellular carcinoma, ascites, esophageal varices, portal hypertension, GERD, and alcohol abuse, who presents with increasing confusion over the past several days Acute confusion, worsening. - Ammonia level was normal, but this is not a reliable test to follow for hepatic encephalopathy. May also be due to loss of sleep, baseline psychiatric issues and possible infection. His confusion has been worsening overnight and he is demonstrating a tremor, possibly asterixis, so he may be experiencing a worsening of hepatic encephalopathy. - Increased lactulose to 20g QID - Added rifaximin 550 mg BID Ascites, improved. - Pt presented with large amount of ascites. Paracentesis was done, draining 7L of ascites. Pt report improved breathing after procedure. Leukocytosis, acute. Resolved. - Pt presents with WBC of 12.2 with 77% neutrophils. His WBC is significantly elevated given his baseline WBC of 3-4. Pancytopenia is expected in pts with ESLD and even minor elevations in WBC should be investigated. Given his CXR findings and ascites, consider causes of infection such as pneumonia, small bowel obstruction, and spontaneous bacterial peritonitis. - Continue to monitor End-stage liver disease, chronic. - MELD Score 31, which confers a 19.6% 3 month mortality. - Palliative care has been consulted and they are discussing the possibility of comfort care at this time. GI Prophylaxis: Proton Pump Inhibitor VTE Prophylaxis: SCDs Resuscitation Status: DNR/DNI:Do Not Resuscitate/Intubate (Discussed at bedside with the patient) Attending Statement Patient seen and examined Agree with resident physician note Agree with assessment and plan as outlined in his notes. Jonel Matt Apr 19, 2016 14:09 Hayley Grimm MD May 06, 2016 14:51
--- NOTE | 2016-04-19 14:35 | PCM.PALLBR ---
Palliative Care Recommendation ESLD and Hepatocellular carcinoma with profound jaundice but normal ammonia level. Patient verbalizes that he is not interested in pursuing transplantation and that he acknowledges not being able to control his ETOH intake. He has been abstinent since at [facility] now 8-9 months. Summary of palliative recommendations: -Symptom management (Pain/other): Hallucinations: longstanding. He denies ever being treated with antipsychotic -reviewed with Dr. Pastor who agrees to trial-- low dose. [facility] is starting meds for hallucination 04/17 and following efficacy of these meds. Initially quetiapine 12.5 mg hs -started 04/18, but he still has ongoing hallucinations. : Will change to risperidol liquid 0.5 po BID and monitor for efficacy. Pain: controlled with paracentesis as is his anorexia improved and dyspnea improved Insomnia: chronic and significant. denies treatment with sedative-states trial of morphine caused severe agitation and hallucinations resulting. Chronic depression: verbalizes a lot of regrets from his inability to control his drinking. He talks of his past goals of killing himself with ETOH. Is not suicidal now. -DPOA/Advanced Directives/POLST-DNR/DNI and no feeding tube -Family/emotional support-daughter Mary Rahman who he also defines as his DPOAHC -Spiritual support-following a 'Jewish path' -Hospice Eligibility?: Eligible for Hospice, but he does not find this appealing and he is suspicious of their potential spiritual component-he is Jewish and wishes to follow this on a Jewish path of dying. He also wants the option to continue on with regular paracentesis which are now occurring about weekly. -Disposition: wants to return to [facility]. Problems: End of Life Preferences DNR/DNI Goals of Care As defined. He is not interested in pursuing transplant option and he was declined at [facility]. He wants to stay at [facility] with the option to have paracentesis every week or so for comfort Disposition Return to [facility] It would be helpful to have routine orders for US guided paracentesis PRN for comfort Resuscitation Status Resuscitation Status: DNR/DNI:Do Not Resuscitate/Intubate (Discussed at bedside with the patient) Total time 35 minutes; >50% face to face with patient and/or family, providing counselling regarding plans and recommendations, and in care coordination with his/her medical teams. copies to: Howard Pastor MD Palliative Brief Note Date of Service Apr 19, 2016 . History of Present Illness Patient is a 65-year-old male who has a history of end-stage liver disease along with hepatocellular carcinoma, ascites, esophageal varices, portal hypertension, GERD, and alcohol abuse, who presents with increasing confusion over the past several days . He has difficulty describing his confusion and appears to be alert and oriented, but it appears to be more concentration and memory difficulties. He also reports recent visual and auditory hallucinations over the last few days, but states that he has been having auditory hallucinations all his life, and states that he "talks to God" on occasion. He states his recent symptoms started immediately after receiving morphine 10 days ago in [facility]. He also attributes his recent confusion to significant insomnia over the last week due to discomfort in any position while sleeping. He reports lower extremity edema, weakness and poor balance. He denies abdominal pain, fevers, chills, N/V/D, hematochezia, chest pain, SOB, wheezing. In the ED, ammonia was normal at 17, total bili is 36.5, AST is 60, ALT is 20, alkaline phosphatase is 80. His white count is 12.2 with platelets 209. He was afebrile but BP was 94/57. Chest x-ray showed moderate left pleural effusion, left basilar consolidation compatible with atelectasis versus pneumonia, patchy airspace opacities in the right lung suspicious for pneumonia, and dilated loop of bowel in the visualized abdomen, suspicious for a small bowel obstruction. Of note, the [facility] Liver Transplant Selection Committee sent a letter received on 04/05/16 informing the patient and [facility] that the patient is not a candidate for liver transplant because of the following reasons: - Lack of insight into alcohol used and its effects on liver disease - Inability to maintain sobriety after multiple attempts at chemical dependency treatment. Hetal Singletary MD Apr 19, 2016 14:35
--- NOTE | 2016-04-19 16:28 | NUR ---
Social Work Continued Discharge Planning: SAMARA spoke to [facility] rep Koki who met with patient and family signed consent. SW spoke to admissions rep at hospice who states that possible opening Friday or Friday but hospice requesting call tomorrow to determine for sure opening time. Rep aware of discharge for tomorrow. SAMARA spoke to SNF rep Luanne who will have bed tomorrow and to accept patient under [facility] Medicaid. SW please follow up with hospice in the morning to determine open time at SNF. No other needs PLAN: Return to [facility] , SAMARA to call to confirm open time tomorrow. Jake GEIGER
[2016-04-19] MEDS: RISPERIDONE 1 MG/ML PO SCH ×2 (16:38→20:00)
[2016-04-19] MEDS ORDERED: Albuterol-Ipratropium 3 mL Inhalation Solution NEB PRN (22:20)
[2016-04-19] MEDS ORDERED: guaiFENesin 600 mg ER12 Tablet PO PRN (22:25)
[2016-04-20] VITALS: BP 92/53; PULSE 70; RESP 19; O2SAT 98
--- NOTE | 2016-04-20 00:05 | PCM.PNMED ---
Subjective Date of Service Apr 19, 2016 Subjective Patient is much more alert and responsive today. He answers questions more appropriately. He has no new complaints. He has no pain. Exam Vital Signs Vital Sign - Last Date Time Temp Pulse Resp B/P Pulse Ox O2 Delivery O2 Flow Rate FiO2 04/19/16 22:59 68 18 90/49 99 Nasal Cannula 6.00 04/19/16 21:59 36.3 Intake and Output 04/18/16 04/18/16 04/19/16 Cumulative From/Thru 15:00 23:00 07:00 04/16/16 14:19 - 04/19/16 06:16 Intake Total 750 ml 50 ml 2710 ml Output Total 750 ml 2 ml 15434 ml Balance 0 ml 48 ml -7417 ml Intake Oral 750 ml 50 ml 2710 ml Output Urine Total 600 ml 2475 ml Stool Total 150 ml 750 ml Urine/Stool Mix 2 ml 2 ml Other 6900 ml # Voids 1 # Bowel Movements 3 7 Exam General: She is markedly icteric he is cachectic and weak appearing. HEENT: Head is atraumatic normocephalic. Eyes: Pupils are equally round and reactive to light and accommodation. Extraocular muscles are intact. Sclera are considerably icteric. Subconjunctival mucosa is icteric. Ears and nose are unremarkable. Oropharynx: There is no mucosal lesions, there is no thrush, there is no pharyngitis. Neck: Is supple, there are no nodes, or masses or tenderness. Chest: Is clear to auscultation and percussion. There are no rales, rhonchi, wheezes or rubs. Heart: Rate, rhythm is regular. There is no murmur rub or gallop. Abdomen: Good bowel sounds are present. Abdomen is soft, nontender, no organomegaly or masses were appreciated. Extremities: Are symmetrical and well perfused. There is no edema, there is no cellulitis, no rash. Neurologic: There are no focal neurological deficits. Cranial nerves II through XII are intact. There are no sensory or motor deficits. Psychiatric: Patients mood is calm and shows no sign of agitation. Genital: Deferred Rectal: Deferred Lab and Diagnostics Result Diagram: 04/18/16 0525 04/18/16 05 Microbiology Previous blood cultures are negative. X-Rays, CTs and MRIs CXR 04/16/16: IMPRESSION: 1. Moderate sized left-sided pleural effusion. 2. Left basilar consolidation compatible with atelectasis versus pneumonia. 3. Patchy airspace opacities in the right lung suspicious for pneumonia. 4. Dilated loop of bowel in the visualized abdomen. Small bowel obstruction cannot be excluded. Recommend correlation with clinical data. Dictated by: Ambika Walsh MD, PhD on 04/17/2016 at 7:49 Cardiac Echo Impressions Echocardiogram Report Name: GRAHAM GUNTER KStudy Date: 11/25/2014 Height: 74 in Hospital Exam Location: [facility] Weight: 254 lb Gender: Male BSA: 2.4 m2 : 1950 Age: 64 yrs BP: 112/74 mmHg Reason For Study: MURMUR Performed By: Mary Witt Referring Physician: UZIEL PERDOMO Interpretation Summary The left ventricle is normal in size. The ejection fraction is estimated to be 55-60%. The right ventricle is normal in size and function. The left atrium is mildly dilated. The right atrium is mildly dilated. The aortic valve is moderately calcified. Leaflet mobility is moderately reduced. The calculated aortic valve area is 1.3 sq cm. The peak aortic velocity is 2.8. The aortic valve mean gradient is 15 mmHg. There is mild-moderate aortic stenosis. There is mild to moderate tricuspid regurgitation. The right ventricular systolic pressure is estimated at 40 mmHg assuming a right atrial pressure of 15 mm Hg. The ascending aorta is mildly enlarged. The aortic arch is mildly enlarged. Assessment & Plan Patient is a 65-year-old male who has a history of end-stage liver disease along with hepatocellular carcinoma, ascites, esophageal varices, portal hypertension, GERD, and alcohol abuse, who presents with increasing confusion over the past several days Acute confusion, worsening. - Ammonia level was normal, but this is not a reliable test to follow for hepatic encephalopathy. - Hepatic encephalopathy improved today 04/19/2015. This occurred after we increased lactulose to 20g QID - Added rifaximin 550 mg BID Ascites, improved. - Pt presented with large amount of ascites. Paracentesis was done, draining 7L of ascites. Pt report improved breathing after procedure. Leukocytosis, acute. Resolved. - Pt presents with WBC of 12.2 with 77% neutrophils. His WBC is significantly elevated given his baseline WBC of 3-4. Pancytopenia is expected in pts with ESLD . - Continue to monitor End-stage liver disease, chronic. - MELD Score 31, which confers a 19.6% 3 month mortality. - Palliative care and hospice have been consulted. - The plan is for patient to go home with hospice care tomorrow. Disposition: As above. Pain Evaluation: Adequate Pain Control GI Prophylaxis: Proton Pump Inhibitor VTE Prophylaxis: SCDs Resuscitation Status: DNR/DNI:Do Not Resuscitate/Intubate (Discussed at bedside with the patient) Pablito Crouch MD Apr 20, 2016 00:05
--- NOTE | 2016-04-20 01:16 | PCM.PNMED ---
Subjective Date of Service Apr 20, 2016 Subjective cross cover cirrhotic, low bp aysmptomatic --hold nadolol choked on lactulose>> 6L O2, now back down to 3LNC --CXR pending Exam Vital Signs Vital Sign - Last Date Time Temp Pulse Resp B/P Pulse Ox O2 Delivery O2 Flow Rate FiO2 04/19/16 22:59 68 18 90/49 99 Nasal Cannula 6.00 04/19/16 21:59 36.3 Intake and Output 04/19/16 04/19/16 04/20/16 Cumulative From/Thru 15:00 23:00 07:00 04/16/16 14:19 - 04/19/16 18:05 Intake Total 900 ml 3610 ml Output Total 2 ml 18594 ml Balance 898 ml -6519 ml Intake Oral 900 ml 3610 ml Output Urine Total 2475 ml Stool Total 750 ml Urine/Stool Mix 2 ml 4 ml Other 6900 ml # Voids 1 # Bowel Movements 3 10 Lab and Diagnostics Result Diagram: 04/18/16 0525 04/18/16 0525 Microbiology Previous blood cultures are negative. X-Rays, CTs and MRIs CXR 04/16/16: IMPRESSION: 1. Moderate sized left-sided pleural effusion. 2. Left basilar consolidation compatible with atelectasis versus pneumonia. 3. Patchy airspace opacities in the right lung suspicious for pneumonia. 4. Dilated loop of bowel in the visualized abdomen. Small bowel obstruction cannot be excluded. Recommend correlation with clinical data. Dictated by: Ambika Walsh MD, PhD on 04/17/2016 at 7:49 Cardiac Echo Impressions Echocardiogram Report Name: GRAHAM GUNTER KStudy Date: 11/25/2014 Height: 74 in Hospital Exam Location: [facility] Weight: 254 lb Gender: Male BSA: 2.4 m2 : 1950 Age: 64 yrs BP: 112/74 mmHg Reason For Study: MURMUR Performed By: Mary Witt Referring Physician: UZIEL PERDOMO Interpretation Summary The left ventricle is normal in size. The ejection fraction is estimated to be 55-60%. The right ventricle is normal in size and function. The left atrium is mildly dilated. The right atrium is mildly dilated. The aortic valve is moderately calcified. Leaflet mobility is moderately reduced. The calculated aortic valve area is 1.3 sq cm. The peak aortic velocity is 2.8. The aortic valve mean gradient is 15 mmHg. There is mild-moderate aortic stenosis. There is mild to moderate tricuspid regurgitation. The right ventricular systolic pressure is estimated at 40 mmHg assuming a right atrial pressure of 15 mm Hg. The ascending aorta is mildly enlarged. The aortic arch is mildly enlarged. Assessment & Plan Patient is a 65-year-old male who has a history of end-stage liver disease along with hepatocellular carcinoma, ascites, esophageal varices, portal hypertension, GERD, and alcohol abuse, who presents with increasing confusion over the past several days Acute confusion, worsening. - Ammonia level was normal, but this is not a reliable test to follow for hepatic encephalopathy. - Hepatic encephalopathy improved today 04/19/2015. This occurred after we increased lactulose to 20g QID - Added rifaximin 550 mg BID Ascites, improved. - Pt presented with large amount of ascites. Paracentesis was done, draining 7L of ascites. Pt report improved breathing after procedure. Leukocytosis, acute. Resolved. - Pt presents with WBC of 12.2 with 77% neutrophils. His WBC is significantly elevated given his baseline WBC of 3-4. Pancytopenia is expected in pts with ESLD . - Continue to monitor End-stage liver disease, chronic. - MELD Score 31, which confers a 19.6% 3 month mortality. - Palliative care and hospice have been consulted. - The plan is for patient to go home with hospice care tomorrow. Disposition: As above. GI Prophylaxis: Proton Pump Inhibitor VTE Prophylaxis: SCDs Resuscitation Status: DNR/DNI:Do Not Resuscitate/Intubate (Discussed at bedside with the patient) Yohan Palmer MD Apr 20, 2016 01:16
[2016-04-20 02:07] VITALS: BP 106/62; PULSE 70; RESP 18; O2SAT 98
[2016-04-20 04:13] VITALS: BP 108/52; PULSE 77; RESP 18; O2SAT 99
[2016-04-20] MEDS: Lactulose 20 Gm/30 mL 30 mL Syrup PO SCH ×2 (05:58→12:26)
--- NOTE | 2016-04-20 06:10 | NUR ---
Possible Aspiration Assumed pt care at 1900, pt received scheduled Lactulose at 2100, pt noted with acute respi. distress, desats 80's, notable short of breath, expiratory wheezes, RT in, pt placed on 02 via Oxymask at 6l/min, placed on continuous pulse ox. stat chest x-ray done, Dr. Palmer requested for reading by night radiologist,unable, despite multiple attempts to page throughout night, Dr. Quintanilla made aware, chest x-ray also unable to be seen thru EMR, spoke with Phuong at X-ray lab, unable to resolve, will endorse to am nurse to follow up, encouraged pt to use flutter valve, @2200 pt able to expectorate and clear scant amount of phlegm,2300 noted pt calming down, vitals taken, 100% on oxymask,changed to Nasal Cannula at 4l/min,sats 100%,0100 titrated down to 3l/min, tolerated well, 0200 titrated to 2.5l/min via NC, pt tolerated well, sats 98-100%, pt reports relief, no signs of further respi distress, spoke to Dr. Quintanilla, with order for speech eval in am, placed. Hypotension Inital Bp's on start of shift, systolic low 90's, Dr. Palmer aware, pt alert/asymptomatic, q1hrly Bp's done throughout night,at 0200 noted systolic up to 90's to low 100's pt remains asymptomatic. Hallucination Pt received first dose of oral risperdal this shift, no noted adverse effects, pt reports less visual/auditory hallucination, continue to monitor.
--- NOTE | 2016-04-20 10:01 | NUR ---
Evaluation completed. Please go to "Notes" then click on "Assessments and Notes" (bottom left corner of screen). Then select appropriate discipline tab on top of screen.
--- NOTE | 2016-04-20 10:13 | DRSVH ---
PROCEDURE: X-RAY CHEST ONE VIEW, PORTABLE ([id number]) INDICATIONS: Rule out aspiration TECHNIQUE: One view of the chest was acquired. COMPARISON: [facility], CR, XR CHEST 1VW (PORTABLE), 07/25/2015, 17:41. [facility], CR, XR CHEST 1VW (PORTABLE), 04/16/2016, 21:43. FINDINGS: Surgical changes and devices: None. Lungs and pleura: There is a persistent moderate-sized left pleural effusion with left basilar conso lidation or compressive atelectasis. A few streaky right infrahilar opacity is also demonstrated. Mediastinum: Mediastinal contours appear unchanged. Heart size is normal. Bones and chest wall: No suspicious bony lesions. Overlying soft tissues appear unremarkable. IMPRESSION: 1. Persistent moderate left pleural effusion with bibasilar opacities consistent with atelectasis, c onsolidation, or aspiration. Dictated by: Dereck Longoria M.D. on 04/20/2016 at 10:05 Approved by: Dereck Longoria M.D. on 04/20/2016 at 10:05
[2016-04-20] MEDS: Heparin 5,000 Unit/mL Inj SUBQ SCH (10:16)
[2016-04-20 10:18] VITALS: BP 88/51; PULSE 61; RESP 20; O2SAT 98
--- NOTE | 2016-04-20 11:02 | NUR ---
Social Work: Readiness for Discharge D: TRUCK RENTAL SERVICE ATTENDANT spoke with Lorraine at [facility]. They confirm that the pt and family signed consents and can open for services tomorrow morning. [facility] states that they had previously requested MD to consider a Plurex Drain as an alternative to a weekly paracentesis procedure. This is not referenced in notes. TRUCK RENTAL SERVICE ATTENDANT spoke with MD who states that Dr. Almanzar did not feel this was appropriate for this pt. TRUCK RENTAL SERVICE ATTENDANT conveyed this information to Lorraine at [facility] who will discuss with their nursing supervisor shed workers. Per bedside RN and MD, pt and family are anticipating pt to discharge back to [facility] today. t/c to Viviana at [facility]; left message to discuss pt's return. A: Pt who is from [facility]. P: Anticipate pt to discharge back to [facility] today and hospice to open tomorrow pending approval from nursing supervisor shed workers. TRUCK RENTAL SERVICE ATTENDANT to continue to work on discharge plan. JUANJO Conrad Addendum: 04/20/16 at 1130 by SAMM RODRIGUEZ SS Update from Lorraine at [facility]. She confirms that they can still accept pt without the Plurex Drain. [facility] will need to coordinate with hospice MD when paracentesis is necessary so that it can be ordered and scheduled. TRUCK RENTAL SERVICE ATTENDANT spoke with Viviana at [facility] who states they can accept the pt back today with Dr. Pastor to follow; she knows that hospice will be coming tomorrow morning to open. aware and is writing orders. PPW on chart. PASSR already on file at [facility]
[2016-04-20] MEDS: RISPERIDONE 1 MG/ML PO SCH (11:09)
--- NOTE | 2016-04-20 11:54 | PCM.DIMED ---
Discharge Instructions Date of Service Apr 20, 2016 Dates of Hospitalization Apr 17, 2016 at 00:55 Discharge Diagnosis Discharge Diagnosis End Stage Liver Disease Diet Heart Healthy Activity No restrictions (May resume activity with Physical Therapy) Call your provider Fever or Chills, Shortness of breath, Bleeding, Chest pain, Vomitting, Excessive diarrhea, Weakness (unilateral), Other Patient Instructions Follow-up Provider: Howard Pastor MD Follow-up with PCP in: 1 week Pablito Crouch MD Apr 20, 2016 11:54
[2016-04-20] MEDS ORDERED: GUAI600T86 PO (12:03)
[2016-04-20] MEDS ORDERED: NDL40T PO (12:03)
[2016-04-20] MEDS ORDERED: QUET25TA73 PO (12:03)
[2016-04-20] MEDS ORDERED: Docusate Sodium PO (12:03)
[2016-04-20] MEDS ORDERED: RISP1SOL PO (12:03)
[2016-04-20] MEDS ORDERED: IPRA3AMP NEB (12:03)
[2016-04-20] MEDS ORDERED: [UNRECOGNIZED DRUG - CODE] PO (12:03)
[2016-04-20] MEDS ORDERED: CHOL100043 PO (12:03)
[2016-04-20] MEDS ORDERED: HEPA500017 SUBQ (12:03)
[2016-04-20] MEDS: Phytonadione (Adult) 10 mg/1 mL Inj PO SCH (12:25)
--- NOTE | 2016-04-20 13:05 | NUR ---
Called Report to [facility] transport arranged for 2-2:30 pm Called sister lani who in on her way from [place]. Spoke to Viviana at [facility] and answered all her questions. Awaiting transport.
--- NOTE | 2016-04-20 14:30 | NUR ---
Discharge [facility] here to [employer] patient and transport to [facility]. All belongings taken, cell phone, cord, glasses. Able to stand and transfer with 1 assist to w/. Hard copy of script signed and in packet. Sister care called at 1400, waiting at [facility] for his arrival.
--- NOTE | 2016-04-20 23:22 | PCM.DC.MED ---
Discharge Summary Date of Service Apr 20, 2016 Dates of Hospitalization Date of Hospital Admission Apr 17, 2016 at 00:55 Date of Discharge: Apr 20, 2016 Providers: Admitting Physician: Yasmin Erazo MD Primary Care Physician: Uziel Pastor MD Attending Physician: Yasmin Erazo MD Diagnosis at Time of Discharge Diagnosis at Time of Discharge End Stage Liver Disease Procedures XRay, CTs & MRIs CXR 04/16/16: IMPRESSION: 1. Moderate sized left-sided pleural effusion. 2. Left basilar consolidation compatible with atelectasis versus pneumonia. 3. Patchy airspace opacities in the right lung suspicious for pneumonia. 4. Dilated loop of bowel in the visualized abdomen. Small bowel obstruction cannot be excluded. Recommend correlation with clinical data. Dictated by: Ambika Walsh MD, PhD on 04/17/2016 at 7:49 Cardiac Echo Impression Echocardiogram Report Name: GRAHAM GUNTER KStudy Date: 0 11/25/2014 Height: 74 in Hospital Exam Location: [facility] Weight: 254 lb Gender: Male BSA: 2.4 m2 : 1950 Age: 64 yrs BP: 112/74 mmHg Reason For Study: MURMUR Performed By: Mary Witt Referring Physician: UZIEL PASTOR Interpretation Summary The left ventricle is normal in size. The ejection fraction is estimated to be 55-60%. The right ventricle is normal in size and function. The left atrium is mildly dilated. The right atrium is mildly dilated. The aortic valve is moderately calcified. Leaflet mobility is moderately reduced. The calculated aortic valve area is 1.3 sq cm. The peak aortic velocity is 2.8. The aortic valve mean gradient is 15 mmHg. There is mild-moderate aortic stenosis. There is mild to moderate tricuspid regurgitation. The right ventricular systolic pressure is estimated at 40 mmHg assuming a right atrial pressure of 15 mm Hg. The ascending aorta is mildly enlarged. The aortic arch is mildly enlarged. Brief History Patient is a 65-year-old male who has a history of end-stage liver disease along with hepatocellular carcinoma, ascites, esophageal varices, portal hypertension, GERD, and alcohol abuse, who presents with increasing confusion over the past several days. He has difficulty describing his confusion and appears to be alert and oriented, but it appears to be more concentration and memory difficulties. He also reports recent visual and auditory hallucinations over the last few days, but states that he has been having auditory hallucinations all his life, and states that he "talks to God" on occasion. He states his recent symptoms started immediately after receiving morphine 10 days ago in [facility]. He also attributes his recent confusion to significant insomnia over the last week due to discomfort in any position while sleeping. He reports lower extremity edema, weakness and poor balance. He denies abdominal pain, fevers, chills, N/V/D, hematochezia, chest pain, SOB, wheezing. In the ED, ammonia was normal at 17, total bili is 36.5, AST is 60, ALT is 20, alkaline phosphatase is 80. His white count is 12.2 with platelets 209. He was afebrile but BP was 94/57. Chest x-ray showed moderate left pleural effusion, left basilar consolidation compatible with atelectasis versus pneumonia, patchy airspace opacities in the right lung suspicious for pneumonia, and dilated loop of bowel in the visualized abdomen, suspicious for a small bowel obstruction. Of note, the [facility] Liver Transplant Selection Committee sent a letter received on 04/05/16 informing the patient and [facility] that the patient is not a candidate for liver transplant because of the following reasons: - Lack of insight into alcohol used and its effects on liver disease - Inability to maintain sobriety after multiple attempts at chemical dependency treatment. 4 patient was admitted to the hospital service for further evaluation and treatment recommendations. Hospital Course Patient is a 65-year-old male who has a history of end-stage liver disease along with hepatocellular carcinoma, ascites, esophageal varices, portal hypertension, GERD, and alcohol abuse, who presents with increasing confusion over the past several days Acute confusion, worsening. - Ammonia level was normal, but this is not a reliable test to follow for hepatic encephalopathy. - Hepatic encephalopathy improved today 04/19/2015. This occurred after we increased lactulose to 20g QID - Added rifaximin 550 mg BID Ascites, improved. - Pt presented with large amount of ascites. Paracentesis was done, draining 7L of ascites. Pt report improved breathing after procedure. Leukocytosis, acute. Resolved. - Pt presents with WBC of 12.2 with 77% neutrophils. His WBC is significantly elevated given his baseline WBC of 3-4. Pancytopenia is expected in pts with ESLD . - Continue to monitor End-stage liver disease, chronic. - MELD Score 31, which confers a 19.6% 3 month mortality. - Palliative care and hospice have been consulted. - The plan is for patient to go home tomorrow to [facility]. Disposition: As above. Exam Vital Signs (Last) Date Time Temp Pulse Resp B/P Pulse Ox O2 Delivery O2 Flow Rate FiO2 04/20/16 10:18 36.4 61 20 88/51 98 Nasal Cannula 2.50 Test 04/16/16 15:05 04/16/16 15:10 04/16/16 20:40 04/18/16 05:25 Urine Color Dark yellow (YELLOW) Urine Appearance Clear (CLEAR,HAZY) Urine pH 5.0 (5.0-8.0) Urine Specific [place] 1.015 (1.003-1.035) Urine Protein Negativemg/dL (NEG,TRACE) Urine Glucose (UA) 100mg/dL (NEGATIVE) Urine Ketones Negativemg/dL (NEGATIVE) Urine Occult Blood Negative (NEGATIVE) Urine Nitrite Negative (NEGATIVE) Urine Bilirubin Large (NEGATIVE) Urine Ictotest Positive (Negative) Urine Urobilinogen Normalmg/dL (NORMAL) Urine Leukocyte Esterase Negative (NEGATIVE) Urine RBC 0-2/hpf (0-2) Urine WBC 0-5/hpf (0-5) Urine Epithelial Cells None/hpf (NONE-MOD) Urine Crystals None seen (NONE SEEN) Urine Bacteria Few/hpf (NONE-FEW) Urine Hyaline Casts None/lpf (NONE) Urine Granular Casts None seen (NONE SEEN) Urine Waxy Casts None seen (NONE SEEN) Urine Red Blood Cell Casts None seen (NONE SEEN) Urine White Blood Cell Casts None seen (NONE SEEN) Urine Mucus None seen (None Seen) Urine Trichomonas None seen (NONE SEEN) Urine Yeast None (NONE SEEN) Urinalysis Comment Amorphous sediment Urine Culture Reflexed Not indicated Nucleated Red Blood Cells 1/100 WBC (0-24) Prothrombin Time 16.6sec (8.1-12.5) Prothromb Time International Ratio 1.54ratio Activated Partial Thromboplast Time 44.1sec (22.8-33.0) Hemoglobin A1c 3.9% (4.8-5.6) Ammonia 17ug/dL (18-53) Hold [place] Top Tube Received (Received) Hold [place] Top Tube Received (Received) White Blood Count 9.2th/mm3 (3.8-10.1) Red Blood Count 2.27mil/mm3 (4.40-5.80) Hemoglobin 8.3g/dL (13.8-17.2) Hematocrit 23.6% (41.0-50.0) Mean Corpuscular Volume 104.0fL (81-100) Mean Corpuscular Hemoglobin 36.6pg (27.0-35.0) Mean Corpuscular Hemoglobin Concent 35.2% (32.0-37.0) Red Cell Distribution Width 17.2% (12.3-15.4) Platelet Count 208bil/L (150-400) Neutrophils (%) (Auto) 71% (40-74) Lymphocytes (%) (Auto) 5% (14-46) Monocytes (%) (Auto) 14% (4-12) Eosinophils (%) (Auto) 3% (0-5) Basophils (%) (Auto) 0% (0-3) Band Neutrophils % 0% (1-5) Metamyelocytes % 2% (0-0) Myelocytes % 5% (0-0) Sodium Level 127mEq/L (134-144) Potassium Level 4.3mEq/L (3.5-5.2) Chloride Level 93mEq/L (97-108) Carbon Dioxide Level 22mmol/L (18-29) Blood Urea Nitrogen 27mg/dL (8-27) Creatinine < 0.30mg/dL (0.76-1.27) Estimat Glomerular Filtration Rate mL/min (>59) Glucose Level 79mg/dL (60-99) Calcium Level 8.5mg/dL (8.5-10.1) Total Bilirubin 36.4mg/dL (0.0-1.2) Aspartate Amino Transf (AST/SGOT) 57U/L (0-50) Alanine Aminotransferase (ALT/SGPT) 19U/L (0-44) Alkaline Phosphatase 73U/L (25-160) Total Protein 5.8g/dL (6.4-8.4) Albumin 3.0g/dL (3.4-5.0) Microbiology Results Previous blood cultures are negative. Discharge Medications Discharge Medications Cholecalciferol (Vitamin D3) (Vitamin D) 1,000 Unit Tablet 1,000 UNIT PO DAILY Prescribed by: EVA CROUCH MD Fluoxetine (Fluoxetine) 40 Mg Capsule 60 MG PO DAILY (Reported) Furosemide (Furosemide) 80 Mg Tab 80 MG PO DAILY (Reported) Heparin Sodium,Porcine (Heparin Sodium) 5,000 Unit/1 Ml Vial 5,000 UNIT SUBQ Q12 Prescribed by: EVA CROUCH MD L. Acidophilus/Pectin, [place] (Acidophilus Capsule) 7.5 Mg (30 Million Cell)- 100 Mg Capsule 1 EACH PO BID (Reported) Lactulose (Lactulose) 20 Gm/30 Ml Solution 20 GM PO BID (Reported) Nadolol (Corgard) 40 Mg Tab 40 MG PO HS Prescribed by: EVA CROUCH MD Omeprazole (Omeprazole) 20 Mg Capsule.dr 20 MG PO BID (Reported) Phytonadione (Vitamin K) 10 Mg/Ml Amp 10 MG PO DAILY Prescribed by: EVA CROUCH MD Quetiapine Fumarate (Quetiapine Fumarate) 25 Mg Tablet 12.5 MG PO HS Prescribed by: EVA CROUCH MD Rifaximin (Xifaxan) 550 Mg Tablet 550 MG PO BID (Reported) Risperidone (Risperidone) 1 Mg/1 Ml Solution 0.5 MG PO BID Prescribed by: EVA CROUCH MD Spironolactone (Spironolactone) 100 Mg Tablet 100 MG PO DAILY (Reported) As needed ([Oxygen]) 1-2 L NASAL PRN For Shortness of Breath (Reported) ([Docusate Sodium]) 250 MG CAPSULE 250 MG PO BID PRN PRN For Constipation Prescribed by: EVA CROUCH MD Acetaminophen (Acetaminophen) 325 Mg Tablet 650 MG PO Q4H PRN PRN For Pain ( Reported) Guaifenesin (Guaifenesin ER) 600 Mg Tab.er.12h 600 MG PO Q12H PRN PRN For Cough Prescribed by: EVA CROUCH MD Ipratropium/Albuterol Sulfate (Iprat-Albut 0.5-3(2.5) mg/3 mL Inhalant Soln) 3 Ml Ampul.neb 3 ML NEB DIRECTED PRN PRN For Wheezing Prescribed by: EVA CROUCH MD Magnesium Hydroxide (Milk of Magnesia) 400 Mg/5 Ml Oral.susp 400 MG PO BID PRN PRN For Constipation (Reported) Followup Plan Disposition: Patient is being discharged to [facility] with hospice care Discharge Diet: Heart Healthy Discharge Activity: No restrictions (May resume activity with Physical Therapy) Follow-up Provider: Uziel Pastor MD Follow-up with PCP in: 1 week Time spent Time spent on discharging this patient was greater than 35 minutes, over half of which was involved in counseling and coordination of care. Pablito Crouch MD Apr 20, 2016 23:22
== END 2016-04-20 14:15 | DRG 433 ==
LOC: SED 14:02 → EDBD 14:02 → OFED 04-17 00:55 → MOC 04-17 09:06
PROVIDERS: ADMIT Specialist; ATTEND Specialist
PROC: 0W9G3ZX Drainage of Peritoneal Cavity, Percutaneous Approach, Diagnostic (ICD-10-PCS; principal; 2016-04-18)
PROC: 3E03317 Introduction of Other Thrombolytic into Peripheral Vein, Percutaneous Approach (ICD-10-PCS; 2016-04-18)
DX: K70.31 Alcoholic cirrhosis of liver with ascites (principal); R44.0 Auditory hallucinations; E87.1 Hypo-osmolality and hyponatremia; K70.40 Alcoholic hepatic failure without coma; G89.29 Other chronic pain; F10.10 Alcohol abuse, uncomplicated; K21.9 Gastro-esophageal reflux disease without esophagitis; I10 Essential (primary) hypertension; R53.81 Other malaise; Z66 Do not resuscitate; G47.00 Insomnia, unspecified; F32.9 Major depressive disorder, single episode, unspecified; Z91.5 Personal history of self-harm; Z87.891 Personal history of nicotine dependence; Z51.5 Encounter for palliative care